=== PATIENT | female | born 1995 | race Two or more races ===

== ENCOUNTER 2016-12-12 17:20 | Emergency (ER) | payer BC ==
[~2016-12-12] VITALS: Ht 165.1 cm; Wt 80.3 kg
[2016-12-12 17:21] VITALS: BP 128/68
[2016-12-12] MEDS ORDERED: PEPC1TAB4 PO (19:24)
[2016-12-12] MEDS ORDERED: PRED20TA PO (19:24)
[2016-12-12] MEDS ORDERED: predniSONE 20 MG TAB PO ONE (19:30)
[2016-12-12] MEDS ORDERED: FAMOTIDINE 20 MG TAB PO ONE (19:30)
== END 2016-12-12 20:05 | disposition home or self-care (01) ==
LOC: M ED 19:40
DX: L50.9 Urticaria, unspecified (principal)